=== PATIENT | female | born 1980 | race Caucasian/White ===

== ENCOUNTER → 2019-06-11 | Outpatient (CLI) | payer OTHER ==
--- NOTE | 2019-06-19 16:46 | KCIC ---
Bilateral digital screening mammograms with 3-D tomosynthesis: Reason for examination: Routine screening. Comparison is made to previous study dated 12/13/2016. Bilateral mammograms in CC and oblique projections were obtained with 2-D imaging and 3-D tomosynthesis imaging on a Siemens Inspiration unit and reviewed on the workstation. Interpretation was made with the benefit of CAD. The skin and nipples show no abnormalities. No abnormal axillary lymph nodes are seen. The breast parenchyma is heterogeneously dense. (Breast density: Category C.) There appears to be a small 7.4 mm circumscribed nodule at the 3:00 B position of the left breast and additional small 1 cm circumscribed lesion seen anterior medially in the right breast on cc view probably in the anterior 1:00 position. Recommend further evaluation with ultrasound. There are no other dominant masses, suspicious calcifications or architectural distortion. Impression: Small nodular densities seen bilaterally at the 3:00 B position of the left breast and anterior medially in the right breast on cc view probably around the 1:00 position. Recommend further evaluation with ultrasound. Your patient's mammogram demonstrates that she has dense breast tissue (breast density category C or D), which could hide abnormalities, and if she has other risk factors for breast cancer that have been identified, she might benefit from supplemental screening tests that may be suggested by you as her ordering physician. Dense breast tissue, in and of itself, is a relatively common condition. Therefore, this information is not provided to cause undue concern, but rather to raise your awareness and to promote discussion with your patient regarding the presence of other risk factors, in addition to dense breast tissue. Your patient's mammography results will be sent to her. BI-RAD Category 0: Incomplete. Needs additional imaging evaluation. "Our facility is accredited by the [employer] Mammography Program." This patient's information has been entered into a reminder system for the patient to be notified with the results of her examination and a target date for the next mammogram. Electronically signed by: Lynne Turpin MD (06/19/2019 4:43 PM) [email or web address]
== END | disposition home or self-care (01) ==
LOC: KCIC MAMMO 16:45
PROVIDERS: ATTEND Internal Medicine
DX: Z12.31 Encounter for screening mammogram for malignant neoplasm of breast (principal)
CPT/HCPCS: 77063; 77067

== ENCOUNTER → 2019-06-29 | Outpatient (CLI) | payer OTHER ==
--- NOTE | 2019-06-29 08:43 | KCIC ---
Bilateral breast ultrasound: Reason for examination: Nodular densities on screening mammogram. Comparison is made to mammographic exam dated 06/11/2019. Ultrasound examination was performed bilaterally including the retroareolar region and axilla. In the right breast, there is a small 4.3 mm hypoechoic fibrocystic lesion at the 12:00 position 3 cm from the nipple. No other cystic or solid nodules are seen. No abnormal appearing lymph nodes are seen in the axilla. In the left breast, there is a circumscribed 8.3 mm hypoechoic nodule in parallel orientation which probably represents a complicated cyst. No other cystic or solid nodules are seen. No abnormal appearing lymph nodes are seen in the axilla. IMPRESSION: Benign-appearing fibrocystic lesion in the right breast. Benign-appearing hypoechoic lesion probably representing a complicated cyst in the left breast. Recommend 6 month follow-up with ultrasound. BI-RADS Category 3: Probably Benign. "Our facility is accredited by the [employer] Mammography [employer]." This patient's information has been entered into a reminder system for the patient to be notified with the results of her examination and a target date for the next mammogram. Electronically signed by: Lynne Turpin MD (06/29/2019 8:39 AM) [email or web address]
== END | disposition home or self-care (01) ==
LOC: KCIC US 08:02
PROVIDERS: ATTEND Internal Medicine
DX: N64.89 Other specified disorders of breast (principal)
CPT/HCPCS: 76641

== ENCOUNTER → 2020-02-19 | Outpatient (CLI) | payer OTHER ==
--- NOTE | 2020-02-20 09:00 | KCIC ---
Bilateral breast ultrasound: Reason for examination: Follow-up nodules. Comparison is made to previous study dated 06/29/2019. Ultrasound examination was performed bilaterally in the areas of previous concern. In the right breast at the 11:30 position 3 cm from the nipple, there continues to be a 4.2 mm hypoechoic fibrocystic lesion in parallel orientation which is stable. No other cystic or solid nodules are seen. In the left breast at the 2:30 position 3 cm from the nipple, there continues to be a 7.6 mm hypoechoic circumscribed lesion in parallel orientation which probably represents a fibroadenoma and is stable. No other cystic or solid nodules are seen. IMPRESSION: Nodules in the right breast at the 11:30 position and in the left breast at the 2:30 position are stable. Recommend continued 6 month follow-up with ultrasound which can be performed at the time of bilateral mammograms. BI-RADS Category 3: Probably Benign. "Our facility is accredited by the [employer] Mammography [employer]." This patient's information has been entered into a reminder system for the patient to be notified with the results of her examination and a target date for the next mammogram. Electronically signed by: Lynne Turpin MD (02/20/2020 8:57 AM) [email or web address]
== END ==
LOC: KCIC US 07:52
PROVIDERS: ATTEND Internal Medicine
DX: N63.25 Unspecified lump in the left breast, overlapping quadrants (principal); N63.15 Unspecified lump in the right breast, overlapping quadrants
CPT/HCPCS: 76641

== ENCOUNTER → 2020-09-23 | Outpatient (CLI) | payer OTHER ==
--- NOTE | 2020-09-24 17:46 | RAD ---
DATE: 09/23/2020 EXAM: MAMMO CALE AKIKO ESPITIAAT, BREAST BILATERAL HISTORY: 39-year-old woman presenting for six-month follow-up of bilateral probably benign lesions. With family history of breast cancer in mother at age of 38, and grandmother at age of 60. COMPARISON: Mammograms 06/11/2019, and 12/13/2016 This study was interpreted with the benefit of Computerized Aided Detection (CAD). Breast Density: HETERO The breast parenchyma is heterogenously dense, which could reduce sensitivity of mammography. Breast parenchyma level C. FINDINGS: There is an approximately 8 mm ovoid asymmetry in the medial right breast, 2.5 cm from the nipple on CC view. There is no correlation on MLO view. Full-field ML and spot compression CC and MLO views were also obtained. The asymmetry becomes less conspicuous on the spot compression cc view and is not seen on the other views. There is no suspicious mass in the left breast. No suspicious calcifications in either breast. Ultrasound: The right breast lesion 11:30, 3 cm from the nipple is no longer visualized. The right breast was scanned from 12:00 to 5:00 and no sonographic abnormality was found to correlate with the asymmetry on CC view. There are normal lymph nodes the right axilla. The ovoid hypoechoic mass at 2:30, 3 cm from the nipple in the left breast is unchanged. This is parallel in orientation with smooth margins and measures 0.9 x 0.8 x 0.3 cm. There are normal lymph nodes in the left axilla. IMPRESSION: 1. Unchanged probably benign hypoechoic mass at 2:30, 3 cm from the nipple in the left breast. This may be a fibroadenoma. Recommend 6 month follow-up ultrasound. 2. The small fibrocystic lesion at 12:00 in the right breast is no longer seen on ultrasound. 3. Ovoid asymmetry in the medial right breast on cc view without definite correlation on other views or by ultrasound is probably benign and due to dense fibroglandular tissue. Recommend 6 month follow-up mammogram and possible ultrasound to ensure stability. BI-RADS CATEGORY: 3 PROBABLY BENIGN FINDING(S)-SHORT INTERVAL FOLLOW-UP SUGGESTED RECOMMENDED FOLLOW-UP: 6M 6 MONTH FOLLOW-UP RIGHT BREAST MAMMOGRAM AND BILATERAL ULTRASOUND. PQRS compliance statement: Patient information was entered into a reminder system with a target due date for the next mammogram. Mammography is a sensitive method for finding small breast cancers, but it does not detect them all and is not a substitute for careful clinical examination. A negative mammogram does not negate a clinically suspicious finding and should not result in delay in biopsying a clinically suspicious abnormality. "Our facility is accredited by the [employer] Mammography [employer]."
== END ==
LOC: MAMMO 10:10
PROVIDERS: ATTEND Internal Medicine
DX: N63.21 Unspecified lump in the left breast, upper outer quadrant (principal); N64.89 Other specified disorders of breast
CPT/HCPCS: 76641; 77066; G0279; 77062

== ENCOUNTER → 2021-03-24 | Outpatient (CLI) | payer OTHER ==
--- NOTE | 2021-03-24 09:40 | RAD ---
EXAM: 1. Unilateral digital diagnostic mammography, right. 2. Bilateral breast ultrasound. HISTORY: Six-month follow-up bilateral breast lesions. TECHNIQUE: Bilateral full field digital images were obtained in CC and MLO projections. Computer-aide d detection was applied. COMPARISON: 09/23/2020, 06/29/2019. COMPOSITION: C. The breasts are heterogeneously dense, which may obscure small masses. FINDINGS: The vaguely nodular region medially on the right cc view appear stable. On today's sonograp hy, there is no correlate for this finding. There are no suspicious right axillary lymph nodes. This likely reflects normal parenchyma. Round calcifications appear benign. There is no suspicious mammogr aphic finding. On the left, a cluster of hypoechoic masses at the 2:00 position 3 cm from the nipple is unchanged. T his may represent collection of small complicated cyst. Altogether the cluster measures 15 x 4 x 7 mm . There is no internal perfusion. There are no suspicious left axillary lymph nodes. BI-RADS CATEGORY 2: Benign. RECOMMENDATION: 1. Resume bilateral screening mammography in 6 months. Electronically signed by: Kristal Kendall MD (03/24/2021 9:38 AM) [email or web address]
== END ==
LOC: US 16:23
PROVIDERS: ATTEND Internal Medicine
DX: N63.21 Unspecified lump in the left breast, upper outer quadrant (principal)
CPT/HCPCS: 76641; 77065; G0279; 77061

== ENCOUNTER → 2021-08-31 | Outpatient (CLI) | payer OTHER ==
--- NOTE | 2021-08-31 11:01 | KCIC ---
Coronary calcium score CT chest without contrast History: Reason: Cardiovascular screening, chest pain. / Spl. Instructions: / History: Technique: Axial CT images obtained through the coronary arteries with calcium score calculated using the modified Agatston Janowitz protocol. One or more of the following individualized dose reduction techniques were utilized for this examinat ion: 1. Automated exposure control; 2. Adjustment of the mA and/or kV according to patient size; 3 . Use of iterative reconstruction technique. Findings: Left Main: 0. Left Anterior Descendin.7. Left Circumflex: 0. Right Coronary: 0. Total Coronary Artery Calcium Score: 0.7. Degree of Plaque Stonewall: Minimal. Cardiovascular Disease Risk: Mild. Calcium Score: 0: No identifiable atherosclerotic plaque. Low cardiac risk 1-10: Minimal plaque burden. Low cardiovascular disease risk. 11-100: Mild plaque burden. Low to intermediate cardiovascular disease risk. 101-400: Moderate plaque burden. Moderate cardiovascular disease risk. >401: Extensive plaque burden. High cardiovascular risk disease. Incidental Findings: Degenerative changes the spine. Impression: * Total coronary artery calcium score of 0.7 which correlates with low cardiovascular disease risk.. Electronically signed by: Lazaro Holland MD (08/31/2021 10:58 AM) [id number]
== END ==
LOC: KCIC CT 10:04
DX: Z13.6 Encounter for screening for cardiovascular disorders (principal); M47.819 Spondylosis without myelopathy or radiculopathy, site unspecified; R07.9 Chest pain, unspecified
CPT/HCPCS: 75571

== ENCOUNTER → 2021-11-23 | Outpatient (CLI) | payer OTHER ==
--- NOTE | 2021-11-23 10:18 | RAD ---
INDICATION: 41 years of age asymptomatic female patient presents for screening mammography. Family hi story of breast cancer in mother age 38. Also paternal grandmother in her 60s. No personal history of breast cancer. TECHNIQUE: Full field craniocaudal and mediolateral oblique images of both breasts were obtained usi ng digital technique with tomosynthesis and also analyzed with computer-aided detection software. COMPARISON: Prior mammographic imaging dating back to 12/13/2016. BREAST COMPOSITION: Category C: The breast tissue is heterogeneously dense, which could obscure detec tion of small masses. FINDINGS: Right breast: Loosely grouped calcifications measuring up to 1.3 cm in maximal AP diameter at the 3: 00 position approximately 2.0 cm deep to the nipple. These calcifications are possibly associated wit h a focal asymmetry/partially obscured mass. Left breast: Calcifications in somewhat of a linear distribution measuring 1.4 cm in maximal AP diame ter at the 2 to 3:00 position, 8.3 cm deep to the nipple. There is no definite associated focal asymm etry or gastric mass. The visualized axillae are unremarkable. IMPRESSION: 1. Indeterminate loosely grouped calcifications at the 3:00 position, anterior depth within the right breast. There is a possible associated focal asymmetry/partially obscured mass. Additional evaluatio n with magnification views and followed with targeted right breast ultrasound. 2. Indeterminate calcifications in somewhat of a linear distribution at the 2 to 3:00 position, poste rior depth within the left breast. Additional evaluation with spot magnification views is recommended . RECOMMENDATION: The patient will be contacted to return for additional imaging and a supplemental rep ort will follow. BIRADS 0: INCOMPLETE - NEED ADDITIONAL IMAGING EVALUATION AND/OR PRIOR MAMMOGRAMS FOR COMPARISON. This study was interpreted with the benefit of Computerized Aided Detection (CAD). Patient information is entered into the reminder system with a target due date for the next screening mammogram. Mammography is the most sensitive method for finding small breast cancers, but it does not detect the m all and is not a substitute for careful clinical examination. A negative mammogram does not negate a clinically suspicious finding and should not result in delay in biopsying a clinically suspicious a bnormality. "Our facility is accredited by the [employer] Mammography Program." Electronically signed by: Gagandeep Nunes DO (11/23/2021 10:16 AM) [facility]
== END ==
LOC: MAMMO 07:53
PROVIDERS: ATTEND Internal Medicine
DX: Z12.31 Encounter for screening mammogram for malignant neoplasm of breast (principal)
CPT/HCPCS: 77063; 77067

== ENCOUNTER → 2021-12-02 | Outpatient (CLI) | payer OTHER ==
--- NOTE | 2021-12-02 13:35 | RAD ---
DATE: 12/02/2021 EXAM: US BREAST RT, MG DIAGNOSTIC BILAT HISTORY: Recalled from screening mammogram for bilateral breast calcifications. COMPARISON: 11/23/2021, 09/23/2020, and 06/11/2019 This study was interpreted with the benefit of Computerized Aided Detection (CAD). Breast Density: HETERO The breast parenchyma is heterogenously dense, which could reduce sensitivity of mammography. Breast parenchyma level C. FINDINGS: The group of calcifications in the upper outer left breast at posterior depth do not layer on ML view have a mildly suspicious amorphic morphology. There are somewhat linear orientation. Calcifications in the right breast at 3:00 anterior depth have a round and mildly pleomorphic morphol ogy. These also do not layer on ML view. There is no sonographic correlation for the questioned focal asymmetry adjacent to the right breast calcifications. No right axillary lymphadenopathy. IMPRESSION: 1. Suspicious right breast calcifications at 3:00 anterior depth. 2. Suspicious left breast calcifications in the upper outer left breast posterior depth. 3. Recommend bilateral stereotactic guided biopsy of calcifications. BI-RADS CATEGORY: 4 SUSPICIOUS ABNORMALITY- BIOPSY SHOULD BE CONSIDERED RECOMMENDED FOLLOW-UP: BIO BIOPSY RECOMMENDED Results and recommendations discussed by Dr. Bosch with Dr. Chambers's office at 1:30pm on 12/02/21 PQRS compliance statement: Patient information was entered into a reminder system with a target due d ate for the next mammogram. Mammography is a sensitive method for finding small breast cancers, but it does not detect them all a nd is not a substitute for careful clinical examination. A negative mammogram does not negate a clin ically suspicious finding and should not result in delay in biopsying a clinically suspicious abnorma lity. "Our facility is accredited by the [employer] Mammography Program." Electronically signed by: Nohemi Bosch MD (12/02/2021 1:33 PM) [facility]
== END ==
LOC: MAMMO 09:53
PROVIDERS: ATTEND Internal Medicine
DX: R92.8 Other abnormal and inconclusive findings on diagnostic imaging of breast (principal)
CPT/HCPCS: 76641; 77066

== ENCOUNTER → 2021-12-24 | Outpatient (CLI) | payer OTHER ==
[~2021-12-24] MED LIST: LIDOCAINE 1% Multi-Dose 20 ML VIAL. INJ ONE; LIDOCAINE 2%/EPI 1:100,000 20 ML VIAL. INJ ONE
--- NOTE | 2021-12-24 10:21 | RAD ---
EXAM: Stereotactic bilateral breast biopsy; specimen radiographs; post-biopsy clip placement; bilater al post-biopsy mammogram. HISTORY: 41-year-old female presents for stereotactic guided biopsy of clustered marked calcification s within both breasts demonstrated on a study performed 12/02/2021. TECHNIQUE AND FINDINGS: The procedure and its risks and benefits were discussed with the patient. Ris ks discussed included, but were not limited to, pain, infection, bleeding and need for repeat biopsy. The patient provided verbal and written consent. A timeout was performed. The bilateral breasts were marked prior to the procedure. The patient was placed in a seated position at the stereotactic biopsy unit and the left breast was p laced in lateral medial compression. Images were obtained and the calcifications of concern were loca lized using stereotaxis. The skin overlying this region was then sterilely prepped and infiltrated wi th a few cc 1% lidocaine for local anesthesia. Deeper soft tissue anesthesia was administered with ep inephrine in 1% lidocaine. A small skin incision was made and the biopsy device was advanced and appr opriate positioning was confirmed with additional images. Subsequently, multiple core biopsy samples were obtained with vacuum assistance. A plain radiograph o f the specimen was obtained, demonstrating inclusion of the calcifications of interest. Then, a post- biospy clip was advanced to the site of biopsy using the same guidance technique. A sterile bandage was placed. Manual compression was maintained until hemostasis achieved. The patient was then placed in a seated position at the stereotactic biopsy unit and the right breast was placed in craniocaudal compression. Images were obtained and the calcifications of concern were localized using stereotaxis. The skin overlying this region was then sterilely prepped and infiltrate d with a few cc 1% lidocaine for local anesthesia. Deeper soft tissue anesthesia was administered wit h epinephrine in 1% lidocaine. A small skin incision was made and the biopsy device was advanced and appropriate positioning was confirmed with additional images. Subsequently, multiple core biopsy samples were obtained with vacuum assistance. A plain radiograph o f the specimen was obtained, demonstrating inclusion of the calcifications of interest. Then, a post- biospy clip was advanced to the site of biopsy using the same guidance technique. A sterile bandage was placed. Manual compression was maintained until hemostasis achieved. Postbiopsy mammographic images were obtained and interpreted the separate workstation. The post-biops y mammogram demonstrates immediate post-biospy changes and biopsy clips in expected position. The pat ient experienced a mild brief vasovagal event during the procedure. There was no immediate complicati on. The patient was discharged in stable condition. IMPRESSION: Successful stereotactic biopsy of clustered marked calcifications within the anterior 3:0 0 position of the right breast and posterior to o'clock position of the left breast and post-biopsy c lip placement. An addendum to this report will be submitted when pathology results are available. Electronically signed by: Paris Madera MD (12/24/2021 10:18 AM) [id number]
--- NOTE | 2021-12-29 18:06 | PATHOLOGY ---
[facility] Accession Number: [id number] . 01 Material submitted: . PART A: breast - RIGHT BREAST TISSUE PART B: breast - LEFT BREAST TISSUE . 01 Clinical history: . RIGHT BREAST CALCIFICATIONS . 02 Diagnosis: A. Breast tissue, right breast calcifications stereotactic biopsy: - DUCTAL CARCINOMA IN SITU, SOLID AND CRIBRIFORM TYPE, INTERMEDIATE GRADE, WITH FOCAL LOBULAR EXTENSION. - Fibrocystic changes. - Sclerosing adenosis, focal. - Calcifications identified. . B. Breast tissue, left breast calcifications stereotactic biopsy: - Fibrocystic changes. - Sclerosing adenosis, focal. - Calcifications identified. . . Surgical Pathology Cancer Case Summary Protocol posting date: September 2018 DCIS OF THE BREAST: Biopsy Procedure ___ Needle biopsy Specimen Laterality ___ Right Tumor Site ___ Not specified Histologic Type ___ Ductal carcinoma in situ (DCIS) Nuclear Grade ___ Grade II (intermediate) Necrosis ___ Present, focal (small foci or single cell necrosis) Additional Pathologic Findings Specify: See diagnoses Microcalcifications ___ Present in DCIS ___ Present in non-neoplastic tissue Biomarker Studies ___ Pending (JPM/db; 12/29/2021) [facility] 12/29/2021 0950 Local . 02 Comment: Sections of the right breast stereotactic biopsy show several foci of intermediate grade ductal carcinoma in situ of solid and focal cribriform type. There is focal lobular extension. There are approximately five foci, the largest of which measures up to approximately 3 mm in greatest dimension. Microscopic sections also show fibrocystic changes and focal sclerosing adenosis. There are calcifications identified. There are several calcifications associated with DCIS. Most of the calcifications appear to be associated with non-neoplastic breast tissue. There is no evidence of an invasive carcinoma. . Sections of the left breast stereotactic biopsy show fibrocystic changes and focal sclerosing adenosis. There are calcifications present within the non-neoplastic breast tissue, including the focal presence of periductal/pericystic coarse stromal calcifications. There is no evidence of malignancy. The case is also examined by Dr. Gambino, who concurs with the diagnosis. (JPM/db; 12/25/2021) . 02 Electronically signed: . Jeffery Pierce MD, Pathologist NPI- [id number] . 01 Gross description: . A. The specimen is received in formalin, labeled "Kori Licea, right breast" and consists of 6 fatty and fibrotic cylindrical tissues ranging in length from 0.8 cm to 3.1 cm and ranging in diameter from 0.1 cm to 0.3 cm. The specimen is submitted en toto in 3 cassettes. The cold ischemic time is 5 minutes. The total time in formalin is 11 hours. . B. The specimen is received in formalin, labeled "Kori Licea, left breast" and consists of multiple fatty and fibrotic cylindrical tissues ranging in length from 0.9 cm to 3.6 cm and ranging in diameter from 0.2 cm to 0.5 cm. The specimen is submitted in toto in 6 cassettes. The cold ischemic time is 5 minutes. The total time in formalin is 11 hours. ([facility]; 12/24/2021) DKA/DKA 12/24/2021 1733 Local . 02 Pathologist provided ICD-10: D05.11, N60.11, N60.12 . 02 CPT . 732541, [id number] Specimen Comment: A courtesy copy of this report has been sent to [phone], [phone] Specimen Comment: [id number] Specimen Comment: Report sent to / DR MARTINEZ Specimen Comment: A duplicate report has been generated due to demographic updates. Performed at: 01 [facility] [address], [place] [id number] MD Yonathan Gambino MD Phone: [phone] Performed at: 02 [facility] [address] [place], [place] [id number] MD Jeffery Pierce MD Phone: [phone]
== END | disposition home or self-care (01) ==
LOC: MAMMO 08:06
PROVIDERS: ATTEND Internal Medicine
DX: R92.8 Other abnormal and inconclusive findings on diagnostic imaging of breast (principal); R92.1 Mammographic calcification found on diagnostic imaging of breast; D05.11 Intraductal carcinoma in situ of right breast; N60.11 Diffuse cystic mastopathy of right breast; N60.12 Diffuse cystic mastopathy of left breast; Z88.0 Allergy status to penicillin
CPT/HCPCS: 19081; 19082; 77066; 88305; 88361; J3490